=== PATIENT | female | born 1990 | race Caucasian/White ===

== ENCOUNTER 2018-11-14 19:43 | Emergency (ER) | payer BC ==
[~2018-11-14] VITALS: Ht 167.6 cm; Wt 63.5 kg
[2018-11-14 19:52] VITALS: BP 133/86
--- NOTE | 2018-11-14 20:09 | NUR ---
PT TO ER BED 9
--- NOTE | 2018-11-14 20:32 | NUR ---
DR REAGAN EVALUATING PT AT BEDSIDE
--- NOTE | 2018-11-14 20:39 | NUR ---
PATIENT PRESENTS TO ED WITH SORE THROAT AND BODY ACHES X 1 DAY. STATED PAIN UPON SWALLOWING 10/10, LOCALIZED. PATIENT ABLE TO SPEAK FULL SENTENCES W/O DIFFICULTY. NO DISTRESS NOTES, VSS. PATIENT IN BED, PENDING EMD EVAL.
--- NOTE | 2018-11-14 21:14 | NUR ---
PT C/O PAIN, MADE AWARE, ORDERS RECEIVED, IN EMAR.
[2018-11-14] MEDS ORDERED: KETOROLAC 60 MG/2 ML VIAL IM ONE (21:15)
[2018-11-14 22:05] VITALS: BP 127/82
--- NOTE | 2018-11-14 22:05 | NUR ---
Patient discharged with v/s stable. Written and verbal after care instructions given and explained. Patient alert, oriented and verbalized understanding of instructions. Ambulatory with steady gait. All questions addressed prior to discharge. ID band removed. Patient advised to follow up with PMD. Rx of AMOXICILLIN 500MG, MOTRIN 800MG AND LIDOCAINE 2% given. Patient educated on indication of medication including possible reaction and side effects. Opportunity to ask questions provided and answered.
== END 2018-11-14 22:05 | disposition home or self-care (01) ==
LOC: MED 19:43
DX: J02.8 Acute pharyngitis due to other specified organisms (principal); B96.89 Other specified bacterial agents as the cause of diseases classified elsewhere; B97.89 Other viral agents as the cause of diseases classified elsewhere
CPT/HCPCS: 87081; 87804; 96372; 99283; J1885

== ENCOUNTER 2019-02-12 12:31 | Emergency (ER) | payer BC ==
[~2019-02-12] VITALS: Ht 172.7 cm; Wt 66.2 kg
[2019-02-12 12:35] VITALS: BP 128/72
--- NOTE | 2019-02-12 12:41 | NUR ---
URINE CUP HANDED TO PT FOR SAMPLE
--- NOTE | 2019-02-12 12:43 | NUR ---
BIB MOTHER. AAO X4 C/O SUPRAPUBIC PAIN RADIATING TO R LOWER BACK X 3 WKS SEVERE TODAY, UNABLE TO AMBULATE UPRIGHT ADMITS TO HAVE BEEN TREATED FOR POSSIBLE VAGINAL FUNGAL INFECTION <3 WKS. PT STATES NAUSEA. PT DENIES DYSURIA, VAGINAL ITCHINESS AND VAGINAL DISCHARGE. AFEBRILE. ER TO EVALUATE PT.
[2019-02-12] MEDS ORDERED: IBUPROFEN 800 MG TAB PO ONE (12:55)
[2019-02-12] MEDS ORDERED: LORazepam 1 MG TAB PO ONE (12:55)
[2019-02-12] MEDS ORDERED: traMADol 50 MG TAB PO ONE (12:55)
--- NOTE | 2019-02-12 12:59 | NUR ---
Dr. Todd evaluating patient at bedside.
[2019-02-12 13:00] LABS: BILIRUBIN,URINE NEGATIVE (NEGATIVE); BLOOD, URINE NEGATIVE (NEGATIVE); COLOR,URINE YELLOW (YELLOW); LEUKOCYTE ESTERASE ,URINE NEGATIVE (NEGATIVE); NITRITE, URINE NEGATIVE (NEGATIVE); UGLUCOSE NEGATIVE (NEGATIVE)
[2019-02-12 13:09] LABS: BARBITURATE, URINE NEG. ng/ml (NEG <=200); BENZODIAZEPINE, URINE NEG. ng/mL (NEG <=200); CANNABINOID, URINE NEG. ng/mL (NEG <=50); COCAINE, URINE POS. ng/mL (NEG <=300); OPIATE, URINE NEG. ng/mL (NEG <=2000); PHENCYCLIDINE SCREEN,URINE NEG. ng/mL (NEG <=25)
--- NOTE | 2019-02-12 13:09 | NUR ---
Patient taken to CT scan/US via wheelchair by tech.
[2019-02-12 13:19] LABS: APPEARANCE,URINE SLIGHTLY HAZY (CLEAR)
[2019-02-12 13:21] LABS: RBC,URINE 0-5 /HPF (0-5); WBC,URINE 0-5 /HPF (0-5)
--- NOTE | 2019-02-12 14:50 | NUR ---
DR DELUNA AT BEDSIDE FOR PT RE EVALUATION
[2019-02-12 14:52] VITALS: BP 128/72
--- NOTE | 2019-02-12 14:52 | NUR ---
Patient discharged with v/s stable. Written and verbal after care instructions given and explained. Patient alert, oriented and verbalized understanding of instructions. Ambulatory with steady gait. All questions addressed prior to discharge. ID band removed. Patient advised to follow up with PMD. Rx of Doxycycline, Vistaril given. Patient educated on indication of medication including possible reaction and side effects. Opportunity to ask questions provided and answered.
== END 2019-02-12 14:52 | disposition home or self-care (01) ==
LOC: MED 12:31
DX: R10.2 Pelvic and perineal pain (principal); R82.5 Elevated urine levels of drugs, medicaments and biological substances; K59.00 Constipation, unspecified; Z90.49 Acquired absence of other specified parts of digestive tract
CPT/HCPCS: 74176; 76856; 80305; 81001; 81025; 99284; Q0092

== ENCOUNTER 2019-04-15 09:25 | Emergency (ER) | payer BC ==
[~2019-04-15] VITALS: Ht 167.6 cm; Wt 63.5 kg
[2019-04-15 09:36] VITALS: BP 100/65
[2019-04-15] MEDS: ACETAMINOPHEN EXTRA STRENGTH 500 MG TAB PO ONE (11:25)
[2019-04-15 11:36] LABS: BASOPHILS % (AUTO) 0.6 % (0.0-2.0); EOSINOPHILS # (AUTO) 0.1 K/uL (0-0.4); EOSINOPHILS % (AUTO) 2.6 % (0.0-4.0); HEMATOCRIT 36.8 % (36-48); HEMOGLOBIN 12.2 g/dL (12.0-16.0); LYMPHOCYTES # (AUTO) 1.3 K/uL (2.5-16.5); LYMPHOCYTES % (AUTO) 24.9 % (20.5-51.1); MEAN CORPUSCULAR HEMOGLOBIN 31 pg (27-31); MEAN CORPUSCULAR HGB CONC 33 g/dL (33-37); MEAN CORPUSCULAR VOLUME 92.3 fL (80-94); MONOCYTES # (AUTO) 0.3 K/uL (0.8-1.0); MONOCYTES % (AUTO) 5.6 % (1.7-9.3); NEUTROPHILS # (AUTO) 3.6 K/uL (1.8-7.7); NEUTROPHILS % (AUTO) 66.3 % (42.2-75.2); PLATELET COUNT (AUTO) 165 K/uL (140-450); RED BLOOD CELL COUNT(AUTO) 3.99 MIL/uL (4.20-5.40); RED CELL DISTRIBUTION WIDTH 13.6 % (11.6-13.7); WHITE BLOOD COUNT (AUTO) 5.4 K/uL (4.8-10.8)
[2019-04-15 12:47] LABS: BILIRUBIN,URINE NEGATIVE (NEGATIVE); COLOR,URINE YELLOW (YELLOW); LEUKOCYTE ESTERASE ,URINE NEGATIVE (NEGATIVE); NITRITE, URINE NEGATIVE (NEGATIVE); UGLUCOSE NEGATIVE (NEGATIVE)
[2019-04-15 12:49] LABS: APPEARANCE,URINE SLIGHTLY HAZY (CLEAR)
[2019-04-15 13:41] LABS: BLOOD, URINE 1+ (NEGATIVE); RBC,URINE 0-5 /HPF (0-5); WBC,URINE 0-5 /HPF (0-5)
[2019-04-15 14:21] VITALS: BP 101/68
== END 2019-04-15 14:20 | disposition home or self-care (01) ==
LOC: MED 09:25
DX: O20.9 Hemorrhage in early pregnancy, unspecified (principal); Z3A.01 Less than 8 weeks gestation of pregnancy
CPT/HCPCS: 36415; 76817; 81001; 81002; 81025; 84702; 85025; 86900; 86901; 99284; Q0092